=== PATIENT | female | born 1940 | race Caucasian/White ===

== ENCOUNTER 2024-07-14 13:54 | Outpatient (AMB) | payer MEDICARE, BC, SELFPAY ==
[2024-07-14 14:21] VITALS: BP 145/82; PULSE 67; O2SAT 95; BMI 45.3
--- NOTE | 2024-07-14 14:21 | MHC.OFFVIS ---
Vital Signs 07/14/24 14:21 Height 4 ft 10 in Weight 217 lb BMI 45.3 BP 145/82 H Blood Pressure Location Lt radial Position Sitting Pulse 67 Pulse Source Pulse Oximeter Pulse Oximetry (%) 95 Oxygen Delivery Method Room Air Intake Visit Reasons: Shoulder Pain Allergies pravastatin Allergy (Unknown, Verified 07/14/24 14:28) Unknown venlafaxine Allergy (Unknown, Verified 07/14/24 14:28) Unknown Medication List - Last Reconciled 07/14/24 by Beverly Vee alendronate (Fosamax) 70 mg PO QWEEK bupropion HCl XL 300 mg PO QAM cholecalciferol (vitamin D3) 50 mcg PO DAILY docusate sodium 100 mg PO BID escitalopram oxalate (Lexapro) 20 mg PO DAILY levothyroxine 175 mcg PO DAILY lidocaine 5% 1 patch topical DAILY omeprazole 40 mg PO DAILY propafenone 150 mg PO ONCE rivaroxaban (Xarelto) 20 mg PO DAILY HPI Comments Details: Princess is a very pleasant 84-year-old female who presents to the office today, accompanied by her daughter, for evaluation management of her right shoulder pain Patient reports that she has been suffering spine for greater than 1 year Recently evaluated by [facility] surgeons, 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 At that time they also performed bilateral shoulder steroid injections. Pain has improved by 50% since the injections. She started physical therapy and has noted minimal improvement in the range of motion. Patient has suffered from intractable left shoulder pain, recently moved here from [place]. While she was in [place] she was treated for this pain with Nalu PNS implant. Her left shoulder pain has significantly improved and she is no longer using the device though it does remain implant in. She is not interested in implantable device, states the procedure was ?awful?. Denies inciting injury, fall, trauma. Pain today is rated as a 2/10, intermittent. Pain is worse with movement. Unable to reach overhead or behind the back without significant pain. In terms of muscle damage condition is described as aching, shooting, dull Pain is negatively impacting patient's enjoyment of life, general activity, recreational activities, mood Has tried multiple medications without improvement. Currently using lidocaine patches and Tylenol. Was prescribed oxycodone but was altered mental status so this was discontinued. Unable to take nonsteroidal anti-inflammatory medications due to current use of Xarelto. Discussed shoulder replacement surgery with Orthopedics but patient does not want to undergo surgery. Endorses current use of anticoagulants, Xarelto Denies current use of nicotine, tobacco, alcohol or illicit substances Review of Systems Const All systems reviewed & are unremarkable except as noted in HPI and below Physical Exam Vital Signs: Last Vital Signs Pulse 67 07/14/24 14:21 BP 145/82 H 07/14/24 14:21 Pulse Ox 95 07/14/24 14:21 Oxygen Delivery Method Room Air 07/14/24 14:21 BMI result Body Mass Index 45.3 General: awake, alert, oriented. Answers questions appropriately. Fully engaged in examination. Skin: warm, dry, intact HEENT: Normocephalic. Hearing intact. Cardiac: External chest normal in appearance. Respiratory: No cough, audible wheezing or stridor. Abdomen: without gross distension. MS: No obvious swelling or deformities. Right shoulder: Tenderness to palpation posterior shoulder. Decreased range of motion specifically overhead reach behind the back reach. Neurological: Oriented to person, place, time and situation. Thought process intact. Ambulates with the use of her Rollator walker Psychiatric: Appropriate mood and affect. Good judgment and insight. Assessment & Plan Assessment & Plan (1) Shoulder pain, right: Code(s): M25.511 - Pain in right shoulder Category: Medical Plan Princess is a very pleasant 84-year-old female presents did to the office today for evaluation management of her chronic right shoulder pain. She has exhausted conservative therapy including [id number]-[id number] medications, prescription medications, physical therapy and steroid injections. She is unable to take nonsteroidal anti-inflammatory medications due to current use of anticoagulants. Will schedule for fluoroscopy guided right suprascapular PNS trial with local anesthetic. All questions and concerns were answered, patient and daughter agree with the plan. Follow up after procedure, sooner if needed Coding Level of Care Code New Pt Level 4 (25840) Complex EM visit Add On G2211 Diagnoses Shoulder pain, right M25.511
== END 2024-07-14 15:34 | disposition home or self-care (01) ==
PROVIDERS: PCP Internal Medicine; Visit Provider Registered Nurse Emergency
DX: M25.511 Pain in right shoulder (principal)
CPT/HCPCS: 99204; G2211

== ENCOUNTER → 2024-07-14 13:54 | Outpatient (BNVA) | payer MEDICARE, SELFPAY | PROVIDERS: PCP Internal Medicine; Visit Provider Registered Nurse Emergency | DX: M25.511 Pain in right shoulder (principal) | CPT/HCPCS: 99202 ==

== ENCOUNTER 2024-08-30 06:14 | Outpatient (REF) | payer MEDICARE, BC, SELFPAY ==
--- NOTE | ~2024-08-30 | FL_ITS ---
EXAMINATION: FLUORO GUIDANCE IN TREATMENT ROOM CLINICAL INFORMATION: Pain in right shoulder. Right shoulder sprint. COMPARISON: None available. TECHNIQUE: Fluoroscopy supervised by: Dr. Shahram Hill. Fluoroscopy time: 0.2 minutes. Cumulative Dose: 1.70 mGy. DAP: 0.0296 mGy-m2 (milligray-meter squared). Images: 2. FINDINGS: A needle and wire overlie the mid scapula on the right. FL/FL guidance in treatment room IMPRESSION: Fluoroscopy during procedure. Please see procedure report for additional information. Electronically signed by: Dayron Aquino MD 10/26/2024 04:16 PM JUNIOR
== END 2024-08-30 06:15 | disposition home or self-care (01) ==
LOC: CF 06:14
PROVIDERS: Visit Provider Anesthesiology
DX: M25.511 Pain in right shoulder (principal)
CPT/HCPCS: 64555; J2003

== ENCOUNTER 2024-08-30 12:25 | Outpatient (AMB) | payer MEDICARE, BC, SELFPAY ==
[2024-08-30 12:55] VITALS: BP 124/57; PULSE 68; O2SAT 95
--- NOTE | 2024-08-30 12:55 | A.OFFVIS_ITS ---
Vital Signs 08/30/24 12:55 08/30/24 13:47 BP 124/57 L 151/72 H Blood Pressure Location Lt brachial Lt brachial Position Sitting Sitting Pulse 68 73 Pulse Source Pulse Oximeter Pulse Oximeter Pulse Oximetry (%) 95 96 Oxygen Delivery Method Room Air Room Air Intake Visit Reasons: RIGHT SUPRASCAPULAR SPRINT PNS TRIAL Allergies pravastatin Allergy (Unknown, Verified 07/14/24 14:28) Unknown venlafaxine Allergy (Unknown, Verified 07/14/24 14:28) Unknown Physical Exam Vital Signs: Last Vital Signs Pulse 73 08/30/24 13:47 BP 151/72 H 08/30/24 13:47 Pulse Ox 96 08/30/24 13:47 Oxygen Delivery Method Room Air 08/30/24 13:47 Assessment & Plan Assessment & Plan (1) Shoulder pain, right: Code(s): M25.511 - Pain in right shoulder Category: Medical Plan Sprint PNS suprascapular nerve the right Percutaneous implantation of peripheral nerve stimulation Sprint system. After the risks, benefits and alternatives were discussed with the patient and informed consent was obtained, patient was placed in the prone position and padded to foster comfort. Time out was performed delineating correct site and side of the procedure , name and of the patient, patient participated in time out procedure. C-arm was brought over the operating field and multiple attempts were made to demonstrate the coracoid process and suprascapular notch of the right scapula. The suprascapular notch of the right scapula was chosen as the target of the tip of the needle positioned. . After identifying and marking the intended target, the skin around the planned entry point and the subcutaneous tissues were injected with local anesthetic forming skin wheal.. A percutaneous sleeve and stimulating probe lead introduction system were assembled, inserted and advanced through the skin wheal to the point of interest under C-arm view in tunnel vision fashion, the introducer needle was delivered to a location in proximity to the nerve. Multiple stimulation parameters were used to deliver stimulation to the nerve in concert with stimulating at multiple positions around the nerve. The nerve target acquisition was confirmed noting generation of in the corresponding to the nerve being stimulated. The patient reported good stimulation. Various electrical parameter combinations were tested, and the lead location was adjusted (physically relocated) until the patient indicated overlapping the dis tribution of the patient?s typical region of pain. The stimulating probe was removed from the introducer and a percutaneous lead was guided through the needle and delivered to a location in similar proximity to the nerve. Final location was verified with electrical stimulation. The introducer needle was removed, and the exposed end of the percutaneous lead was attached to an external stimulator unit. At the end of the case various electrical parameter combinations were again tested until the patient indicated paresthesia or muscle tension overlapping the distribution of the patient?s typical region of pain. After confirming that lead impedance was in the normal range, the external unit was detached, the needle was removed, and the lead was anchored at the skin. The lead was threaded into the connector block and electrical continuity and desired patient response was confirmed. The connector block was attached to the external stimulator unit. The site was covered with a sterile occlusive dressing and a image was taken to document final placement. Orders: Orders FL guidance in treatment room Today M25.511 - Pain in right shoulder Coding Level of Care Code Procedure Only Diagnoses Shoulder pain, right M25.511
[2024-08-30 13:47] VITALS: BP 151/72; PULSE 73; O2SAT 96
== END 2024-08-30 14:34 | disposition home or self-care (01) ==
LOC: HO.PMCPRC 12:25
PROVIDERS: PCP Internal Medicine; Visit Provider Anesthesiology
DX: M25.511 Pain in right shoulder (principal)
CPT/HCPCS: 64555

== ENCOUNTER 2024-09-07 12:53 | Outpatient (AMB) | payer MEDICARE, SELFPAY ==
--- NOTE | 2024-09-07 13:02 | MHC.OFFVIS ---
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 She has one-week status post right suprascapular sprint PNS placement Tolerating device well, stimulation currently at 65 Denies any untoward effects Patient and daughter report increased range of motion of the right shoulder. She has also been using it more since placement of the device. Prior: Princess is a very pleasant 84-year-old female who presents to the office today, accompanied by her daughter, for evaluation management of her right shoulder pain Patient reports that she has been suffering spine for greater than 1 year Recently evaluated by [facility]opedic surgeons, x-rays were performed that showed ?ixtm-it-nmfv arthritis?. At that time they also performed bilateral shoulder steroid injections. Pain has improved by 50% since the injections. She started physical therapy and has noted minimal improvement in the range of motion. Patient has suffered from intractable left shoulder pain, recently moved here from [place]. While she was in [place] she was treated for this pain with Nalu PNS implant. Her left shoulder pain has significantly improved and she is no longer using the device though it does remain implant in. She is not interested in implantable device, states the procedure was ?awful?. Denies inciting injury, fall, trauma. Pain today is rated as a 2/10, intermittent. Pain is worse with movement. Unable to reach overhead or behind the back without significant pain. In terms of muscle damage condition is described as aching, shooting, dull Pain is negatively impacting patient's enjoyment of life, general activity, recreational activities, mood Has tried multiple medications without improvement. Currently using lidocaine patches and Tylenol. Was prescribed oxycodone but was altered mental status so this was discontinued. Unable to take nonsteroidal anti-inflammatory medications due to current use of Xarelto. Discussed shoulder replacement surgery with Orthopedics but patient does not want to undergo surgery. Endorses current use of anticoagulants, Xarelto Denies current use of nicotine, tobacco, alcohol or illicit substances Review of Systems Const All systems reviewed & are unremarkable except as noted in HPI and below Physical Exam Vital Signs: Last Vital Signs Pulse 67 09/07/24 13:12 BP 132/60 09/07/24 13:12 Pulse Ox 97 09/07/24 13:12 Oxygen Delivery Method Room Air 09/07/24 13:12 BMI result Body Mass Index 42.8 General: awake, alert, oriented. Answers questions appropriately. Fully engaged in examination. Skin: warm, dry, intact HEENT: Normocephalic. Hearing intact. Cardiac: External chest normal in appearance. Respiratory: No cough, audible wheezing or stridor. Abdomen: without gross distension. MS: No obvious swelling or deformities. Right shoulder: Decreased range of motion specifically overhead reach behind the back reach. Neurological: Oriented to person, place, time and situation. Thought process intact. Ambulates with the use of her Rollator walker Psychiatric: Appropriate mood and affect. Good judgment and insight. Sprint dressing change: Existing dressing removed, Area cleansed with chloraprep. Site dry, clean without redness, swelling, warmth, bruising or drainage. Lead secure device removed. Area cleansed again with chloraprep, once dry skin barrier protectant wipe applied. New lead secure device applied, tegaderm applied. Patient tolerated procedure well. Assessment & Plan Assessment & Plan (1) Shoulder pain, right: Code(s): M25.511 - Pain in right shoulder Category: Medical (2) Shoulder pain, left: Code(s): M25.512 - Pain in left shoulder Category: Medical Plan Princess presented back to the office today for follow-up, accompanied by her daughter, one-week status post right suprascapular sprint PNS Pain today is rated as an 8/10. She is unable to detail percentage of pain relief at this time. She does report increased range of motion and use of the right arm since placement of the Sprint. They are in contact with the Sprint call center support representative in case of any questions or concerns. Supplies have been sent to the patient and family Order placed for PT eval and treat for bilateral shoulders. Goal to improve range of motion. Patient previously used [facility] therapy, she would like a referral sent to them again. All questions and concerns were answered, patient and daughter agree with the plan. Follow up after PT, sooner if needed Orders: Orders PT Evaluation and Treatment Today M25.511 - Pain in right shoulder, M25.512 - Pain in left shoulder Coding Level of Care Code Est Pt Level 3 (74617) Complex EM visit Add On G2211 Diagnoses Shoulder pain, right M25.511 Shoulder pain, left M25.512
[2024-09-07 13:12] VITALS: BP 132/60; PULSE 67; O2SAT 97; BMI 42.8
== END 2024-09-07 13:28 | disposition home or self-care (01) ==
PROVIDERS: PCP Internal Medicine; Visit Provider Registered Nurse Emergency
DX: M25.511 Pain in right shoulder (principal); M25.512 Pain in left shoulder
CPT/HCPCS: 99024

== ENCOUNTER → 2024-09-07 12:53 | Outpatient (BNVA) | payer MEDICARE, SELFPAY | PROVIDERS: PCP Internal Medicine; Visit Provider Registered Nurse Emergency | DX: M25.511 Pain in right shoulder (principal); M25.512 Pain in left shoulder; Z96.82 Presence of neurostimulator | CPT/HCPCS: 99212 ==

== ENCOUNTER 2024-10-26 12:50 | Outpatient (AMB) | payer MEDICARE, BC, SELFPAY ==
[2024-10-26 13:05] VITALS: BP 138/78; PULSE 82; BMI 43.9
--- NOTE | 2024-10-26 13:05 | MHC.OFFVIS ---
Vital Signs 10/26/24 13:05 Height 4 ft 10 in Weight 210 lb BMI 43.9 BP 138/78 Blood Pressure Location Lt brachial Position Sitting Pulse 82 Pulse Source Pulse Oximeter Intake Visit Reasons: RIGHT SUPRASCAPULAR SPRINT REMOVAL Intake Note: Pain today 04/06 Driver Wheelchair Required: No Accompanied by: Daughter Allergies pravastatin Allergy (Unknown, Verified 10/26/24 13:05) Unknown venlafaxine Allergy (Unknown, Verified 10/26/24 13:05) Unknown HPI Comments Details: Patient presents back to the office today, accompanied by her daughter, for right suprascapular Sprint removal Patient is no longer having pain that shoots down her arm. She is no longer having episodes where she lives out in pain. She has increased mobility and function. She is now able to brush her hair. They report significant improvement since device placement. She does continue with her arthritis pain. Underwent repeat steroid injections at orthopedic office 1 month ago. She has repeated physical therapy which did assist with improving her range of motion. She continues with home exercise program as tolerated. They are unable to detail percentage of pain relief. Patient continues to complain of her chronic arthritis pain. Patient's daughter reports objectively appears the patient has much improved, she is no longer yelling out in pain, she can brush her own hair and she can do more things. The daughter states there are days that she patient will states she has no pain at all. Prior: Patient presents back to the office today, accompanied by her daughter, for follow-up right shoulder pain. She has one-week status post right suprascapular sprint PNS placement Tolerating device well, stimulation currently at 65 Denies any untoward effects Patient and daughter report increased range of motion of the right shoulder. She has also been using it more since placement of the device. Prior: Princess is a very pleasant 84-year-old female who presents to the office today, accompanied by her daughter, for evaluation management of her right shoulder pain Patient reports that she has been suffering spine for greater than 1 year Recently evaluated by [facility], x-rays were performed that showed ?ehug-cw-nwts arthritis?. At that time they also performed bilateral shoulder steroid injections. Pain has improved by 50% since the injections. She started physical therapy and has noted minimal improvement in the range of motion. Patient has suffered from intractable left shoulder pain, recently moved here from [place]. While she was in [place] she was treated for this pain with Nalu PNS implant. Her left shoulder pain has significantly improved and she is no longer using the device though it does remain implant in. She is not interested in implantable device, states the procedure was ?awful?. Denies inciting injury, fall, trauma. Pain today is rated as a 2/10, intermittent. Pain is worse with movement. Unable to reach overhead or behind the back without significant pain. In terms of muscle damage condition is described as aching, shooting, dull Pain is negatively impacting patient's enjoyment of life, general activity, recreational activities, mood Has tried multiple medications without improvement. Currently using lidocaine patches and Tylenol. Was prescribed oxycodone but was altered mental status so this was discontinued. Unable to take nonsteroidal anti-inflammatory medications due to current use of Xarelto. Discussed shoulder replacement surgery with Orthopedics but patient does not want to undergo surgery. Endorses current use of anticoagulants, Xarelto Denies current use of nicotine, tobacco, alcohol or illicit substances Review of Systems Const All systems reviewed & are unremarkable except as noted in HPI and below Physical Exam Vital Signs: Last Vital Signs Pulse 82 10/26/24 13:05 BP 138/78 10/26/24 13:05 BMI result Body Mass Index 43.9 General: awake, alert, oriented. Answers questions appropriately. Fully engaged in examination. Skin: warm, dry, intact HEENT: Normocephalic. Hearing intact. Cardiac: External chest normal in appearance. Respiratory: No cough, audible wheezing or stridor. Abdomen: without gross distension. MS: No obvious swelling or deformities. Right shoulder: Decreased range of motion specifically overhead reach behind the back reach. Neurological: Oriented to person, place, time and situation. Thought process intact. Ambulates with the use of her Rollator walker Psychiatric: Appropriate mood and affect. Good judgment and insight. Sprint removal: Dressing removed, Site dry, clean, intact. Area cleansed with chloraprep, lead removed with intact tip. Area cleansed again with chloraprep, bacitracin dressing with tegaderm applied. Patient tolerated removal well. Assessment & Plan Assessment & Plan (1) Shoulder pain, right: Code(s): M25.511 - Pain in right shoulder Category: Medical (2) Shoulder pain, left: Code(s): M25.512 - Pain in left shoulder Category: Medical Plan Princess presented back to the office today for follow-up, removal of right suprascapular sprint PNS Patient tolerated device and removal well. Reports improvement in pain, function mobility over last 8 weeks. All questions and concerns were answered, patient and daughter agree with the plan. Follow up if pain returns, sooner if needed Coding Level of Care Code Est Pt Level 3 (75323) Complex EM visit Add On G2211 Diagnoses Shoulder pain, right M25.511 Shoulder pain, left M25.512
== END 2024-10-26 13:25 | disposition home or self-care (01) ==
PROVIDERS: PCP Internal Medicine; Visit Provider Registered Nurse Emergency
DX: M25.511 Pain in right shoulder (principal); M25.512 Pain in left shoulder
CPT/HCPCS: 99213; G2211

== ENCOUNTER → 2024-10-26 12:50 | Outpatient (BNVA) | payer MEDICARE, SELFPAY | PROVIDERS: PCP Internal Medicine; Visit Provider Registered Nurse Emergency | DX: M25.511 Pain in right shoulder (principal); M25.512 Pain in left shoulder | CPT/HCPCS: 99212 ==

== ENCOUNTER 2025-03-23 12:24 | Outpatient (AMB) | payer MEDICARE, BC, SELFPAY ==
[2025-03-23 12:27] VITALS: BP 128/84; PULSE 83; O2SAT 97; BMI 39.1
--- NOTE | 2025-03-23 12:27 | MHC.OFFVIS ---
Vital Signs 03/23/25 12:27 Height 4 ft 10 in Weight 187 lb BMI 39.1 BP 128/84 Blood Pressure Location Rt brachial Position Sitting Pulse 83 Pulse Source Pulse Oximeter Pulse Oximetry (%) 97 Oxygen Delivery Method Room Air Intake Visit Reasons: ENP-Parkinson Intake Note: Patient referred by [facility] for parkinsons disease Accompanied by: Daughter Allergies pravastatin Allergy (Unknown, Verified 03/23/25 12:31) Unknown venlafaxine Allergy (Unknown, Verified 03/23/25 12:31) Unknown Medication List - Last Reconciled 03/23/25 by Reema Hogan MD acetaminophen ER (Tylenol Arthritis Pain) 650 mg PO Q12H alendronate (Fosamax) 70 mg PO QWEEK bupropion HCl XL 300 mg PO QAM carbidopa-levodopa 25-100 mg 1 tab PO BID cholecalciferol (vitamin D3) 50 mcg PO DAILY difluprednate 0.05% drps ophthalmic (eye) docusate sodium 100 mg PO BID escitalopram oxalate (Lexapro) 20 mg PO DAILY levothyroxine 175 mcg PO DAILY omeprazole 40 mg PO DAILY propafenone 150 mg PO ONCE rivaroxaban (Xarelto) 20 mg PO DAILY tramadol 25 mg PO Q6H PRN HPI Comments Details: 85y/o Right handed female comes for neurological evaluation( Parkinsons) . she is accompanied by her daughter who helps with history. she moved from [place] 1 year ago and is now is Assisted Living - [facility]. She was diagnosed with Parkinsons disease in December 2023 but was suspected in March 2022. she was diagnosed with [facility] metabolic encephalopathy in January [address] Gutierrez in [place] - she was on Effexor and pravastatin which was d/catalina. Her mentation improved after the meds were stopped. she started noticing tremors in wilfred hands R>L and at rest .Her voice is softer and has been asked to repeat multiple times. she denies drooling. she also has wilfred shoulder arthritis and that is affecting her ADLs. she has trouble getting dressed , shower using utensils ( slower) .Her walking has slowed down and her balance is poor. she had a fall 4 mths ago - she was also diagnosed with COVID and was very offbalance and confused which resolved after she recovered from COVID. SLeep-she has abnormal behavior- screaming yelling in sleep for many years now. she has MARIELLE and does not use her CPAP. Mood- depression anxious Memory- Not good, word finding difficulties. she is not motivated Bowel movements- OK, colace Bladder- frequency urgency and incontinence- wearing depends. Hallucinations-none Dizziness-none denies diplopia No fh/o parkinsons. no head injury , no exposure to toxins she has a neurostimulator in her left shoulder for pain.she is seeing [facility] for shoulders.she has tried cymbalata , gabapentin , oxycodone tylenol. [facility] Medical History (Updated 04/04/25 @ 14:18 by Reema oHgan MD) Parkinson disease Hypersomnia Snoring Presence of neurostimulator Toxic metabolic encephalopathy Chronic shoulder pain Type 2 diabetes mellitus Morbid obesity Parkinson disease Depression Gout Gastric AVM Meningioma Hypothyroidism Cognitive changes MARIELLE (obstructive sleep apnea) Chronic atrial fibrillation Thrombocytopenia Surgical History Hx of cataract surgery H/O: hysterectomy Family History Father Bone cancer Social History Alcohol intake: never Patient Tobacco Use Status: Never used Tobacco Physical Exam Vital Signs: Last Vital Signs Pulse 83 03/23/25 12:27 BP 128/84 03/23/25 12:27 Pulse Ox 97 03/23/25 12:27 Oxygen Delivery Method Room Air 03/23/25 12:27 BMI result Body Mass Index 39.1 Const General: cooperative and comfortable Nutritional Appearance: average body habitus Orientation/consciousness: patient oriented x3 Neuro Other: Mild decreased facial expression and blink Wilfred rest tremors R>L Cog wheel 1 + on the left FFM decreased wilfred Foot taps decreased wilfred R>L Gait- small steps , stooped decreased arm swings speech - hypophonia General: patient oriented x3, moves all extremities and no focal motor deficits Cranial nerves: Yes Bilaterally intact EOM present, Yes Nystagmus not present, Yes Normal facial strength present and Yes Midline tongue present Motor exam (neuro): 5/5 motor strength present throughout Deep tendon reflexes (DTR's): Right triceps reflex intensity grade: 1+, Left triceps reflex intensity grade: 1+, Rt Biceps (C5, C6): 1+, Left biceps reflex intensity grade: 1+, Right brachioradialis reflex intensity grade: 1+, Left brachioradialis reflex intensity grade: 1+, Right patellar reflex intensity grade: 1+ and Left patellar reflex intensity grade: 1+ Coordination: [id number] test normal Assessment & Plan Assessment & Plan (1) Parkinson disease: Code(s): G20.A1 - Parkinson's disease without dyskinesia, without mention of fluctuations Category: Medical Qualifiers: Dyskinesia presence: without dyskinesia Fluctuating manifestations: without fluctuating manifestations Qualified Code(s): G20.A1 - Parkinson's disease without dyskinesia, without mention of fluctuations (2) Snoring: Code(s): R06.83 - Snoring Category: Medical (3) Hypersomnia: Code(s): G47.10 - Hypersomnia, unspecified Category: Medical Plan I will trial her on carbidopa/levodopa 25/100 bid Side effects discussed in detail Home sleep study to r/o sleep apnea/ Orders: Orders RT home sleep study 03/23/25 R06.83 - Snoring, G47.10 - Hypersomnia, unspecified Medications: New carbidopa-levodopa 25-100 mg 1 tab PO BID 60 tabs 6RF Coding Level of Care Code New Pt Level 4 (39134) Complex EM visit Add On G2211 Diagnoses Parkinson's disease without dyskinesia or fluctuating manifestations G20.A1 Dyskinesia presence: without dyskinesia Fluctuating manifestations: without fluctuating manifestations Snoring R06.83 Hypersomnia G47.10
== END 2025-03-23 13:32 | disposition home or self-care (01) ==
LOC: HO.HSMS 12:25
PROVIDERS: PCP Internal Medicine; Visit Provider Psychiatry & Neurology Neurology
DX: G20.A1 Parkinson's disease without dyskinesia, without mention of fluctuations (principal); R06.83 Snoring; G47.10 Hypersomnia, unspecified
CPT/HCPCS: 99204; G2211

== ENCOUNTER → 2025-03-23 12:24 | Outpatient (BNVA) | payer MEDICARE, BC, SELFPAY | PROVIDERS: PCP Internal Medicine; Visit Provider Psychiatry & Neurology Neurology | DX: G20.A1 Parkinson's disease without dyskinesia, without mention of fluctuations (principal); R06.83 Snoring; G47.10 Hypersomnia, unspecified | CPT/HCPCS: 99202 ==

== ENCOUNTER → 2025-07-12 15:16 | Outpatient (REF) | payer MEDICARE, BC, SELFPAY | LOC: HO.SL 15:16 | PROVIDERS: PCP Internal Medicine; Visit Provider Psychiatry & Neurology Neurology | DX: Z13.89 Encounter for screening for other disorder (principal) ==

== ENCOUNTER 2025-07-24 13:28 | Outpatient (AMB) | payer MEDICARE, BC, SELFPAY ==
[2025-07-24 13:40] VITALS: BP 110/68; PULSE 82; O2SAT 97; BMI 40.9
--- NOTE | 2025-07-24 13:40 | MHC.OFFVIS ---
Vital Signs 07/24/25 13:40 Height 4 ft 10 in Weight 195 lb 8 oz BMI 40.9 BP 110/68 Blood Pressure Location Rt brachial Position Sitting Pulse 82 Pulse Source Pulse Oximeter Pulse Oximetry (%) 97 Oxygen Delivery Method Room Air Intake Visit Reasons: 4 mo follow up Intake Note: Follow up Parkinson's disease without dyskinesia, without mention of fluctuations, Snoring and Hypersomnia Nurse Case Management Required: No Accompanied by: Daughter Allergies pravastatin Allergy (Unknown, Verified 07/24/25 13:40) Unknown venlafaxine Allergy (Unknown, Verified 07/24/25 13:40) Unknown HPI Comments Details: 85y/o Right handed female comes for follow up of Parkinsons and excessive daytime sleepiness. Carbidopa/levodopa 25/100 bid helped the tremors and movement.No hallucinations or dizziness. she had a fall last week and does not remember how she fell.( she self reported it ) History from 02/2025- she is accompanied by her daughter who helps with history. she moved from [place] 1 year ago and is now is Assisted Living - [facility]. She was diagnosed with Parkinsons disease in December 2023 but was suspected in March 2022. she was diagnosed with [facility] metabolic encephalopathy in January [address] Gutierrez in [place] - she was on Effexor and pravastatin which was d/catalina. Her mentation improved after the meds were stopped. she started noticing tremors in wilfred hands R>L and at rest .Her voice is softer and has been asked to repeat multiple times. she denies drooling. she also has wilfred shoulder arthritis and that is affecting her ADLs. she has trouble getting dressed , shower using utensils ( slower) .Her walking has slowed down and her balance is poor. she had a fall 4 mths ago - she was also diagnosed with COVID and was very offbalance and confused which resolved after she recovered from COVID. SLeep-she has abnormal behavior- screaming yelling in sleep for many years now. she has MARIELLE and does not use her CPAP. Mood- depression anxious Memory- Not good, word finding difficulties. she is not motivated Bowel movements- OK, colace Bladder- frequency urgency and incontinence- wearing depends. Hallucinations-none Dizziness-none denies diplopia No fh/o parkinsons. no head injury , no exposure to toxins she has a neurostimulator in her left shoulder for pain.she is seeing [facility] for shoulders.she has tried cymbalata , gabapentin , oxycodone tylenol. REPLACED BY [facility] Medical History (Updated 04/04/25 @ 14:18 by Reema Hogan MD) Parkinson disease Hypersomnia Snoring Presence of neurostimulator Toxic metabolic encephalopathy Chronic shoulder pain Type 2 diabetes mellitus Morbid obesity Parkinson disease Depression Gout Gastric AVM Meningioma Hypothyroidism Cognitive changes MARIELLE (obstructive sleep apnea) Chronic atrial fibrillation Thrombocytopenia Surgical History Hx of cataract surgery H/O: hysterectomy Family History Father Bone cancer Social History Alcohol intake: never Patient Tobacco Use Status: Never used Tobacco Physical Exam Vital Signs: Last Vital Signs Pulse 82 07/24/25 13:40 BP 110/68 07/24/25 13:40 Pulse Ox 97 07/24/25 13:40 Oxygen Delivery Method Room Air 07/24/25 13:40 BMI result Body Mass Index 40.9 Const General: cooperative and comfortable Nutritional Appearance: average body habitus Orientation/consciousness: patient oriented x3 Neuro Other: Mild decreased facial expression and blink Mild rest tremors R>L Cog wheel 1 + on the left FFM decreased wilfred Foot taps decreased wilfred R>L Gait- small steps , stooped decreased arm swings speech - good General: patient oriented x3, moves all extremities and no focal motor deficits Cranial nerves: Yes Bilaterally intact EOM present, Yes Nystagmus not present, Yes Normal facial strength present and Yes Midline tongue present Motor exam (neuro): 5/5 motor strength present throughout Coordination: [id number] test normal Assessment & Plan Assessment & Plan (1) Parkinson disease: Code(s): G20.A1 - Parkinson's disease without dyskinesia, without mention of fluctuations Category: Medical (2) Snoring: Code(s): R06.83 - Snoring Category: Medical (3) Hypersomnia: Code(s): G47.10 - Hypersomnia, unspecified Category: Medical Plan Continue Carbidopa/levodopa 25/100 bid Side effects discussed in detail Home sleep study to r/o sleep apnea/- patient declines Suggest PT to help maintain mobility Coding Level of Care Code Est Pt Level 4 (29286) Complex EM visit Add On G2211 Diagnoses Parkinson disease G20.A1 Snoring R06.83 Hypersomnia G47.10
== END 2025-07-24 14:34 | disposition home or self-care (01) ==
LOC: HO.HSMS 13:28
PROVIDERS: PCP Internal Medicine; Visit Provider Psychiatry & Neurology Neurology
DX: G20.A1 Parkinson's disease without dyskinesia, without mention of fluctuations (principal); R06.83 Snoring; G47.10 Hypersomnia, unspecified
CPT/HCPCS: 99214; G2211

== ENCOUNTER → 2025-07-24 13:28 | Outpatient (BNVA) | payer MEDICARE, BC, SELFPAY | PROVIDERS: PCP Internal Medicine; Visit Provider Psychiatry & Neurology Neurology | DX: G20.A1 Parkinson's disease without dyskinesia, without mention of fluctuations (principal); F02.A3 Dementia in other diseases classified elsewhere, mild, with mood disturbance; R06.83 Snoring; G47.10 Hypersomnia, unspecified; G47.33 Obstructive sleep apnea (adult) (pediatric); E66.01 Morbid (severe) obesity due to excess calories; Z68.41 Body mass index [BMI] 40.0-44.9, adult; Z86.16 Personal history of COVID-19 | CPT/HCPCS: 99212 ==

== ENCOUNTER → 2025-09-13 10:10 | Outpatient (REF) | payer MEDICARE, BC, SELFPAY | LOC: HO.SL 10:10 | PROVIDERS: PCP Pediatrics; Visit Provider Psychiatry & Neurology Neurology | DX: R06.83 Snoring (principal); G47.10 Hypersomnia, unspecified | CPT/HCPCS: 95806 ==

== ENCOUNTER → 2025-09-13 10:21 | Outpatient (BNV) | payer MEDICARE, BC, SELFPAY | PROVIDERS: PCP Pediatrics; Visit Provider Psychiatry & Neurology Neurology | DX: G47.33 Obstructive sleep apnea (adult) (pediatric) (principal) | CPT/HCPCS: 95806 ==